=== PATIENT | female | born 1990 | race Two or more races ===

== ENCOUNTER → 2016-08-17 | Outpatient (REF) | payer BC ==
[2016-08-17 16:08] LABS: FREE T4 0.18 NG/DL (0.76-1.46)
== END ==
LOC: M LABDRAW1 13:57
PROVIDERS: ATTEND Internal Medicine Endocrinology, Diabetes & Metabolism
DX: E89.0 Postprocedural hypothyroidism (principal)

== ENCOUNTER → 2016-12-02 | Outpatient (REF) | payer BC ==
[2016-12-02 16:46] LABS: FREE T4 0.45 NG/DL (0.76-1.46)
== END ==
LOC: M LABDRAW1 10:57
PROVIDERS: ATTEND Internal Medicine Endocrinology, Diabetes & Metabolism
DX: E89.0 Postprocedural hypothyroidism (principal)

== ENCOUNTER → 2017-07-24 | Outpatient (CLI) | payer SELFPAY ==
[2017-07-24 18:44] LABS: FREE T4 0.41 NG/DL (0.76-1.46)
== END ==
LOC: M WUC 09:45
DX: E89.0 Postprocedural hypothyroidism (principal)

== ENCOUNTER → 2018-12-06 | Outpatient (REF) | payer SELFPAY ==
[2018-12-06 16:28] LABS: FREE T4 0.78 NG/DL (0.76-1.46); THYROID STIMULATING HORMONE 3.24 uIU/ML (0.358-3.740)
== END ==
LOC: M LABDRAW1 12:41
PROVIDERS: ATTEND Nurse Practitioner Family
DX: E89.0 Postprocedural hypothyroidism (principal)

== ENCOUNTER → 2019-03-02 | Outpatient (REF) | payer SELFPAY ==
[2019-03-02 12:58] LABS: FREE T4 0.88 NG/DL (0.76-1.46); THYROID STIMULATING HORMONE 9.53 uIU/ML (0.358-3.740)
== END ==
LOC: M LABDRAW1 11:26
PROVIDERS: ATTEND Nurse Practitioner Family
DX: E89.0 Postprocedural hypothyroidism (principal)

== ENCOUNTER 2023-04-01 20:22 | Observation (INO) | payer SELFPAY ==
[~2023-04-01] VITALS: Ht 165.1 cm; Wt 59.3 kg
[2023-04-01] MEDS: THIAMINE 100 MG TAB PO SCH (21:00)
[2023-04-01 21:26] LABS: BASO # 0.1 10^3/uL (0.0-0.2); EOS # 0.1 10^3/uL (0.0-0.5); EOS % 0.8 % (0.0-3.0); HEMATOCRIT 33.6 % (36.0-47.0); HEMOGLOBIN 12.2 g/dl (12.0-15.5); LYMPH # 2.3 10^3/uL (1.5-5.0); LYMPH % 29.1 % (24.0-44.0); MEAN CORPUSCULAR HEMOGLOBIN 37.3 pg (27.0-33.0); MEAN CORPUSCULAR HGB CONC 36.3 g/dl (32.0-36.5); MEAN CORPUSCULAR VOLUME 102.8 fl (80.0-96.0); MONO # 0.5 10^3/uL (0.0-0.8); MONO % 6.9 % (2.0-8.0); NEUTROPHILS # 4.8 10^3/uL (1.5-8.5); NEUTROPHILS % 60.9 % (36.0-66.0); PLATELET COUNT, AUTOMATED 240 10^3/uL (150-450); RED BLOOD COUNT 3.27 10^6/uL (4.00-5.40); WHITE BLOOD COUNT 7.9 10^3/uL (4.0-10.0)
[2023-04-01 21:54] LABS: ALBUMIN 4.3 G/DL (3.2-5.2); ALKALINE PHOSPHATASE 111 U/L (46-116); ALT/SGPT 80 U/L (7.0-40); AST/SGOT 179 U/L (<34); BILIRUBIN,TOTAL 1.1 MG/DL (0.3-1.2); BLOOD UREA NITROGEN 9 MG/DL (9-23); CALCIUM LEVEL 9.7 MG/DL (8.5-10.1); CARBON DIOXIDE LEVEL 28 MMOL/L (20-31); CHLORIDE LEVEL 101 MMOL/L (98-107); CREATININE FOR GFR 0.84 MG/DL (0.55-1.30); GLOMERULAR FILTRATION RATE > 60.0 (>60); GLUCOSE, FASTING 92 MG/DL (60-100); MAGNESIUM LEVEL 2.2 MG/DL (1.8-2.4); POTASSIUM SERUM 3.7 MMOL/L (3.5-5.1); SODIUM LEVEL 135 MMOL/L (136-145); TOTAL PROTEIN 7.9 G/DL (5.7-8.2)
[2023-04-01 22:11] LABS: THYROID STIMULATING HORMONE > 150.000 uIU/ML (0.55-4.78)
[2023-04-01] MEDS: NS 2,000 ML IV ONE (22:12)
[2023-04-01 22:37] LABS: INR 1.02; PROTHROMBIN TIME 13.1 SECONDS (12.5-14.5)
[2023-04-01 22:38] LABS: PARTIAL THROMBOPLASTIN TIME 32.1 SECONDS (24.8-34.2)
[2023-04-01] MEDS: HYDROCORTISONE 100MG/2ML VIAL IV ONE (23:10)
[2023-04-02] MEDS: LEVOTHYROXINE 100MCG (0.1MG) 5ML SDV PF (SOLUTION FORM) IV STA (01:52)
[2023-04-02 03:00] VITALS: BP 111/71; TEMP 97.9; O2SAT 100
[2023-04-02 04:34] VITALS: BP 110/71; TEMP 98.6; O2SAT 100
[2023-04-02] MEDS: LEVOTHYROXINE 75MCG TABLET (0.075MG) PO SCH (05:47)
[2023-04-02 06:00] VITALS: BP 110/71
[2023-04-02 07:14] LABS: BLOOD UREA NITROGEN 9 MG/DL (9-23); CALCIUM LEVEL 9.1 MG/DL (8.5-10.1); CARBON DIOXIDE LEVEL 24 MMOL/L (20-31); CHLORIDE LEVEL 103 MMOL/L (98-107); CREATININE FOR GFR 0.81 MG/DL (0.55-1.30); GLOMERULAR FILTRATION RATE > 60.0 (>60); GLUCOSE, FASTING 140 MG/DL (60-100); POTASSIUM SERUM 3.9 MMOL/L (3.5-5.1); SODIUM LEVEL 136 MMOL/L (136-145)
[2023-04-02 08:18] VITALS: BP 107/71
[2023-04-02] MEDS: FOLIC ACID 1MG TAB PO SCH (08:53)
[2023-04-02] MEDS: MULTIVITAMINS/MINERALS THERAP 1 TAB PO SCH (08:53)
[2023-04-02] MEDS ORDERED: HOME MED LIST COMPLETE! XX SCH (09:05)
[2023-04-02] MEDS ORDERED: LEVO75TA4 PO (12:57)
== END 2023-04-02 14:54 | disposition home or self-care (01) ==
LOC: M ED 20:22 → M ED INP 20:23 → M MSPAV 04-02 02:52
PROVIDERS: ADMIT Internal Medicine; ATTEND Student in an Organized Health Care Education/Training Program
DX: E03.9 Hypothyroidism, unspecified (principal); E05.00 Thyrotoxicosis with diffuse goiter without thyrotoxic crisis or storm; R74.01 Elevation of levels of liver transaminase levels; F10.20 Alcohol dependence, uncomplicated; F12.20 Cannabis dependence, uncomplicated; F17.218 Nicotine dependence, cigarettes, with other nicotine-induced disorders; Z91.040 Latex allergy status; Z79.899 Other long term (current) drug therapy
CPT/HCPCS: 36415; 71046; 76705; 80048; 80053; 81001; 83605; 83735; 84439; 84443; 85025; 85610; 85730; 87088; 87186; 87635; 93005; 96374; 96375; 99284; J1720